=== PATIENT | male | born 1995 | race Caucasian/White ===

== ENCOUNTER 2017-04-17 09:19 | Emergency (ER) | payer SELFPAY ==
[~2017-04-17] VITALS: Ht 175.3 cm; Wt 100.9 kg
[2017-04-17 09:24] VITALS: BP 149/94; PULSE 91; TEMP 99.1
== END 2017-04-17 10:02 | disposition home or self-care (01) ==
LOC: COL.ER 09:19
DX: B35.6 Tinea cruris (principal)